=== PATIENT | female | born 1965 | race Caucasian/White ===

== ENCOUNTER 2018-04-09 12:03 | Emergency (ER) | payer OTHER ==
--- NOTE | 2018-04-09 12:18 | ED Physician Documentation ---
Hand Injury - HISTORIAN Historian: patient - HPI Stated Complaint: she smashed her hand at work Chief Complaint: Hand Injury Onset: just prior to arrival Where: work Severity: mild Duration: persistent since Context: crush Location of Injury: R hand Modifying Factors: none Further Comments: yes (She states she smashed her hand in between the laundry cart and wall and she has " a chunk missing" She has no loss of senstation. She is able to move finger FROM. She has no other complaints) - ROS CONST: no problems - PAST HX Past History: none Immunizations: UTD Allergies/Adverse Reactions: Allergies Allergy/AdvReac Type Severity Reaction Status Date / Time Sulfa (Sulfonamide Allergy Intermediate Hives Verified 04/09/18 12:30 Antibiotics) [Sulfa(Sulfonamide Antibiotics)] - SOCIAL HX Smoking History: cigarettes Alcohol Use: none Drug Use: none - FAMILY HX Family History: none - VITAL SIGNS Vital Signs: Vital Signs Temp Pulse Resp BP Pulse Ox 130/76 11/06/12 16:31 - REVIEWED ASSESSMENTS Nursing Assessment Reviewed: Yes Vitals Reviewed: Yes ED Results Lab/Radiology - Radiology Radiology Impressions: Examination: Plain film right hand History: PAIN IN DISTAL 4TH DIGIT AFTER PINCHING FINGER BETWEEN A BASKET AND THE WALL Comparison exams: None available Findings: 3 views of the right hand demonstrate normal cortical margins. No fracture. No dislocation. No soft tissue abnormality. Impression: No acute appearing osseous abnormality Electronically signed on Apr 09, 2018 12:55:17 PM SHOVEL LOADER OPERATOR by: Landry Charles - Orders Orders: ED Orders Category Date Time Status HAND 3 VIEWS OR MORE [RAD] Stat Exams 04/09/18 Ordered Hand Injury Physical Exam - Exam General Appearance: no acute distress, alert Hand: nml inspection, other (small less than 1 cm area with skin missing. No bleeding. Pulses + sensation + and FROM ) Neuro: sensation nml, motor nml Vascular: no vascular compromise Skin: warm/dry, normal color Neck/Back: nml inspection Resp/CVS: chest non-tender, breath sounds nml, heart sounds nml, no resp. distress, lungs clear, reg. rate & rhythm Abdomen: non-tender Discharge Clincal Impression: Hand abrasion Qualifiers: Encounter type: initial encounter Laterality: right Qualified Code(s): S60.511A - Abrasion of right hand, initial encounter Referrals: Crow Dickerson MD [Primary Care Provider] - 2 Days Comments: 1. Keep area clean and dry 2. OTC meds as needed for pain - as directed 3. Follow up with PCP in 2-4 days if any increase in pain or swelling or other concerns 4. Return to ER for any concerns Condition: Stable Disposition: 01 HOME, SELF-CARE Decision to Admit: NO Date of Decison to Admit: 04/09/18 Decision Time: 12:57
[2018-04-09] MEDS ORDERED: NEOMYCIN/BACITRACIN/POLYMYXINB OINT 15 GM TP ONE (12:57)
[2018-04-09 14:11] VITALS: BP 114/86
--- NOTE | 2018-04-09 14:54 | Diagnostic Imaging Report ---
<p>Your browser does not support iframes.</p> SADI BRANHAM [facility] [id number] [facility].[address] [address] Report Submission Date: Apr 09, 2018 12:55:17 PM TENANT COORDINATOR Patient Study Name: ADAN ESPINOZA Date: Apr 09, 2018 12:34:12 PM TENANT COORDINATOR Modality Type: DX Gender: F Description: HAND 3 VIEWS OR MORE : 63 Institution: [facility] Physician: SADI BRANHAM Examination: Plain film right hand History: PAIN IN DISTAL 4TH DIGIT AFTER PINCHING FINGER BETWEEN A BASKET AND THE WALL Comparison exams: None available Findings: 3 views of the right hand demonstrate normal cortical margins. No fracture. No dislocation. No soft tissue abnormality. Impression: No acute appearing osseous abnormality Electronically signed on Apr 09, 2018 12:55:17 PM TENANT COORDINATOR by: Landry MCMILLAN
== END 2018-04-09 13:05 | disposition home or self-care (01) ==
LOC: ED 12:03
DX: S60.511A Abrasion of right hand, initial encounter (principal); W23.1XXA Caught, crushed, jammed, or pinched between stationary objects, initial encounter; Y93.89 Activity, other specified; Y92.89 Other specified places as the place of occurrence of the external cause; Y99.0 Civilian activity done for income or pay
CPT/HCPCS: 73130; 99282; 99283